=== PATIENT | female | born 1965 | race American Indian/Alaskan Native ===

== ENCOUNTER 2017-06-03 21:10 | Inpatient (IN) | payer MEDICARE ==
[2017-06-03] MEDS ORDERED: ZOFRAN IV ONE (21:52)
[2017-06-03] MEDS ORDERED: PEPCID IV ONE (21:52)
[2017-06-03 22:36] LABS: Basophils % (Auto) 0.7 % (0.0-1.8); Eosinophils % (Auto) 1.3 % (0.0-4.3); Hematocrit 36.7 % (30.3-42.9); Hemoglobin 11.7 gm/dl (10.1-14.3); Lymphocytes % (Auto) 26.7 % (13.4-35.0); Mean Corpuscular HGB Conc 32 % (30-34); Mean Corpuscular Hemoglobin 28 pg (28-32); Mean Corpuscular Volume 89 fl (79-97); Monocytes % (Auto) 4.6 % (0.0-7.3); Platelet Count 399 K/mm3 (140-440); Red Blood Count 4.14 M/mm3 (3.65-5.03); Red Cell Distribution Width 17.4 % (13.2-15.2)
[2017-06-03 22:37] LABS: Eosinophils # (Auto) 0.1 K/mm3 (0.0-0.4); Lymphocytes # (Auto) 1.8 K/mm3 (1.2-5.4); Monocytes # (Auto) 0.3 K/mm3 (0.0-0.8)
[2017-06-03 23:00] LABS: Calcium 9.6 mg/dL (8.4-10.2)
[2017-06-03] MEDS ORDERED: D50W (25GM) Syringe IV ONE (23:04)
--- NOTE | 2017-06-04 00:30 | Emergency Department Report ---
- General Chief complaint: Hypoglycemia Stated complaint: HYPOGLYCEMIA Time Seen by Provider: 06/03/17 21:45 Source: patient Mode of arrival: Stretcher Limitations: No Limitations - History of Present Illness Initial comments: Patient is a 52-year-old female with a past medical history of insulin-dependent diabetes who is presenting with hypoglycemia. The patient's daughter called 911 because she was altered. Patient had a tooth extraction 2 days ago as been taking Vicodin and antibiotics but not eating and drinking well because of pain in her mouth. Patient has still been taking her insulin as scheduled. Patient was noted to be altered. EMS arrived her blood sugar was 40. Patient was given D50 one amp before arrival. Patient is denying any nausea vomiting chest pain shortness of breath fevers chills at this time. Severity scale (0 -10): 0 - Related Data Home Medications Medication Instructions Recorded Confirmed Last Taken Docusate Sodium [Colace CAP] 100 mg PO BID 03/04/17 03/04/17 Unknown Insulin Regular, Human [Novolin R] 3 units IJ TID 03/04/17 03/04/17 Unknown Sevelamer Carbonate [Renvela] 800 mg PO TIDWM 03/04/17 03/04/17 Unknown Vit B Comp No.3/Folic/C/Biotin 1 each PO ONCE 03/04/17 03/04/17 Unknown [Anayeli-Bang Rx Tablet] Previous Rx's Medication Instructions Recorded Last Taken Type Divalproex Sodium 125 mg PO DAILY #30 tablet. 03/07/17 Unknown Rx Metoprolol [Lopressor TAB] 50 mg PO BID #60 tablet 03/07/17 Unknown Rx NovoLOG Mix 70/30 VIAL 25 unit SUB-Q TIDAC 30 Days 03/07/17 Unknown Rx Sodium Bicarbonate 1,300 mg PO TID #30 tablet 03/07/17 Unknown Rx amLODIPine 10 mg PO DAILY #30 03/07/17 Unknown Rx Allergies Allergy/AdvReac Type Severity Reaction Status Date / Time Penicillins Allergy Hives Verified 03/03/17 16:41 ED Review of Systems ROS: Stated complaint: HYPOGLYCEMIA Other details as noted in HPI Comment: All other systems reviewed and negative ED Past Medical Hx - Past Medical History Previous Medical History?: Yes Hx Hypertension: Yes Hx Congestive Heart Failure: No Hx Diabetes: Yes Hx Renal Disease: Yes (no longer on dialysis) Hx Psychiatric Treatment: Yes (bi-polar, schizophrenia) Hx Asthma: No - Surgical History Past Surgical History?: Yes Additional Surgical History: LUE fistula. - Social History Smoking Status: Never Smoker Substance Use Type: None - Medications Home Medications: Home Medications Medication Instructions Recorded Confirmed Last Taken Type Docusate Sodium [Colace CAP] 100 mg PO BID 03/04/17 03/04/17 Unknown History Insulin Regular, Human [Novolin R] 3 units IJ TID 03/04/17 03/04/17 Unknown History Sevelamer Carbonate [Renvela] 800 mg PO TIDWM 03/04/17 03/04/17 Unknown History Vit B Comp No.3/Folic/C/Biotin 1 each PO ONCE 03/04/17 03/04/17 Unknown History [Anayeli-Bang Rx Tablet] Divalproex Sodium 125 mg PO DAILY #30 tablet. 03/07/17 Unknown Rx Metoprolol [Lopressor TAB] 50 mg PO BID #60 tablet 03/07/17 Unknown Rx NovoLOG Mix 70/30 VIAL 25 unit SUB-Q TIDAC 30 Days 03/07/17 Unknown Rx Sodium Bicarbonate 1,300 mg PO TID #30 tablet 03/07/17 Unknown Rx amLODIPine 10 mg PO DAILY #30 03/07/17 Unknown Rx ED Physical Exam - General Limitations: No Limitations General appearance: alert, in no apparent distress - Head Head exam: Present: atraumatic, normocephalic - Eye Eye exam: Present: normal appearance, PERRL, other (pupils are pinpoint) - ENT ENT exam: Present: mucous membranes moist - Neck Neck exam: Present: normal inspection - Respiratory Respiratory exam: Present: normal lung sounds bilaterally. Absent: respiratory distress - Cardiovascular Cardiovascular Exam: Present: regular rate, normal rhythm. Absent: systolic murmur, diastolic murmur, rubs, gallop - GI/Abdominal GI/Abdominal exam: Present: soft, normal bowel sounds - Extremities Exam Extremities exam: Present: normal inspection - Back Exam Back exam: Present: normal inspection - Neurological Exam Neurological exam: Present: alert, oriented X3 - Psychiatric Psychiatric exam: Present: normal affect, normal mood - Skin Skin exam: Present: warm, dry, intact, normal color. Absent: rash ED Course Vital Signs 01/19/18 01/19/18 01/19/18 22:10 22:30 23:05 Temperature 89.7 F L Pulse Rate 83 Respiratory 16 16 Rate Blood Pressure 162/95 Blood Pressure 162/95 [Left] O2 Sat by Pulse 99 100 Oximetry - Reevaluation(s) Reevaluation #1: 06/04/17 00:29 Patient still was somewhat lethargic blood sugar serum was in the 50s. Patient was given an additional amp of D50 and has eaten. ED Medical Decision Making - Lab Data Result diagrams: 06/03/17 22:05 06/03/17 22:05 - Medical Decision Making Patient is a 52-year-old female with past medical history diabetes and end- stage renal disease patient is on dialysis. Patient was noted to be hypoglycemic was given several doses of D50 and food but is still borderline with her blood sugar. Patient was started on D5 drip and will be admitted to the hospital Critical care attestation.: If time is entered above; I have spent that time in minutes in the direct care of this critically ill patient, excluding procedure time. ED Disposition Clinical Impression: Hypoglycemia, Chronic renal disease Insulin reaction Qualifiers: Encounter type: initial encounter Qualified Code(s): T38.3X5A - Adverse effect of insulin and oral hypoglycemic [antidiabetic] drugs, initial encounter Disposition: 09 OP ADMIT IP TO THIS HOSP Is pt being admited?: Yes Does the pt Need Aspirin: No Condition: Stable
[2017-06-04] MEDS ORDERED: D5NS 1,000 ML IV SCH (01:00)
[2017-06-04] MEDS ORDERED: ZOFRAN IV PRN (03:45)
[2017-06-04] MEDS: HEPARIN SUB-Q SCH ×3 (06:53→23:25)
--- NOTE | 2017-06-04 09:18 | Event Note ---
Date: 06/04/17 See H/p in reports Persistent Hypoglycemia ESRD IDDM
--- NOTE | 2017-06-04 09:54 | History and Physical Report ---
CHIEF COMPLAINT: Persistent low sugar. HISTORY OF PRESENT ILLNESS: A 52-year-old -[place] female admitted presents with persistent hypoglycemia. The patient has not been eating well because of her teeth being removed and recent dental care, but the patient is still taking the same amount of insulin. Persistently hypoglycemic in the Emergency Room. Feels weak and sweaty and palpitations. Otherwise, no other symptoms. PAST MEDICAL HISTORY: Significant for insulin-dependent diabetes; end-stage renal disease, not on dialysis. Bipolar, schizophrenia, hypertension. No congestive heart failure. PAST SURGICAL HISTORY: Left upper extremity fistula, . SOCIAL HISTORY: Does not smoke. No alcohol, no recreational drugs. FAMILY HISTORY: Significant for hypertension. CURRENT MEDICATIONS: Insulin 70/30, 25 units twice a day. Sodium bicarbonate 1300 mg t.i.d. REVIEW OF SYSTEMS: Significant for persistent hypoglycemia, feeling weak and sweaty and palpitations. Otherwise, review of systems is essentially negative. No nausea, no vomiting, no fever, no chills. PHYSICAL EXAMINATION: GENERAL: Middle-aged female, cooperative during examination. VITAL SIGNS: Blood pressure is 153/78, temperature is 98.8, pulse is 100, respirations 16. HEENT: Unremarkable. Pupils equal and reactive. NECK: Supple, no lymphadenopathy, no thyromegaly. LUNGS: Clear to auscultation and percussion. Good air entry. CARDIOVASCULAR: S1, S2 heard. No gallop, no murmur, no rub. Apical impulse in left fifth intercostal space and midclavicular line. ABDOMEN: Soft and benign. No hepatosplenomegaly. No guarding, no rigidity. EXTREMITIES: Good pedal pulses. No pedal edema. CENTRAL NERVOUS SYSTEM: Alert and oriented x 4, nonfocal exam. LABORATORY DATA: Significant for normal hemoglobin and hematocrit 11.7 and 36.7, normal white count. BUN and creatinine 60 and 4.7, glucose is 54. Sodium is 143. CT of the head was negative. No imaging studies. ASSESSMENT AND PLAN: 1. Persistent hypoglycemia. The patient started onD5W for the time being. Also, hold insulin for the time being and resume at a lower dos. 2. Hypertension. Continue metoprolol. 3. Chronic kidney disease. Continue sodium bicarbonate. The patient not on dialysis. 4. Deep venous thrombosis prophylaxis, Lovenox 40 mg subcutaneous daily. [facility]# [id number] LEO/JASON
--- NOTE | 2017-06-04 10:46 | Event Note ---
Date: 06/04/17 Patient with chronic kidney disease, hypoglycemia. Will discontinue D5NS. Start 5%Dextrose at 42ml/min
[2017-06-04] MEDS ORDERED: D5W 1,000 ML IV SCH (11:00)
[2017-06-04] MEDS ORDERED: LASIX IV ONE (11:00)
[2017-06-04 13:08] LABS: Calcium 9.3 mg/dL (8.4-10.2)
[2017-06-04] MEDS ORDERED: KIONEX PO ONE (14:17)
[2017-06-05] MEDS: HEPARIN SUB-Q SCH ×2 (06:15→13:01)
--- NOTE | 2017-06-05 12:07 | Discharge Summary ---
Providers - Providers Date of Admission: 06/04/17 00:33 Date of discharge: 06/05/17 Attending physician: MAURICE SCOTT 06/04/17 20:15 Consult to Physician [CONS] Routine Consulting Provider: RADHA GONZALEZ Reason For Exam: cKD Place consult to:: DR. GONZALEZ Notified:: A.SGabi Phone number called:: [phone] Was contact made?: Yes If yes, spoke with:: KENNEDI Time called:: 10:43 Comment:: DOMINIC NOTIFIED Primary care physician: MAURICE EDWARD Hospitalization Condition: Fair Disposition: DC-01 TO HOME OR SELFCARE - Discharge Diagnoses (1) Hypoglycemia Status: Acute Core Measure Documentation - Palliative Care Palliative Care/ Comfort Measures: Not Applicable Exam - Constitutional Vitals: Temp Pulse Resp BP Pulse Ox 99.0 F 108 H 20 167/95 93 06/05/17 07:22 06/05/17 07:22 06/05/17 07:22 06/05/17 07:22 06/05/17 07:22 Plan Activity: no restrictions Diet: low fat, low cholesterol, low salt, diabetic, renal Additional Instructions: 1.Follow up with PCP in 3- 5 days. 2.Follow up with Dr. Ramirez, Bakery Machine Mechanic Supervisor in 1-2 days to follow Cr 4.8. 3.Hold all Insulin for few days until blood glucose goes above 200 then resume. Follow up with: MAURICE EDWARD MD [Primary Care Provider] - 7 Days
[2017-06-05] MEDS ORDERED: LOPRESSOR PO SCH (12:10)
[2017-06-05 12:23] VITALS: BP 151/78
== END 2017-06-05 14:30 | disposition home or self-care (01) | DRG 638 ==
LOC: ED 21:10 → 3A 06-04 00:33
PROVIDERS: ADMIT Internal Medicine; ATTEND Internal Medicine
DX: E11.649 Type 2 diabetes mellitus with hypoglycemia without coma (principal); I12.0 Hypertensive chronic kidney disease with stage 5 chronic kidney disease or end stage renal disease; F31.9 Bipolar disorder, unspecified; F20.9 Schizophrenia, unspecified; N18.6 End stage renal disease; E11.22 Type 2 diabetes mellitus with diabetic chronic kidney disease; T38.3X5A Adverse effect of insulin and oral hypoglycemic [antidiabetic] drugs, initial encounter; Y92.89 Other specified places as the place of occurrence of the external cause; Z82.49 Family history of ischemic heart disease and other diseases of the circulatory system; Z79.4 Long term (current) use of insulin; Z79.899 Other long term (current) drug therapy; Z88.0 Allergy status to penicillin
CPT/HCPCS: 36415; 80048; 82962; 83036; 84132; 85025; 96374; 96375; J1644; J1940; J2405; J7042; J7070

== ENCOUNTER 2017-07-18 11:26 | Emergency (ER) | payer MEDICARE ==
[2017-07-18] MEDS ORDERED: ULTRAM PO ONE (15:05)
[2017-07-18] MEDS ORDERED: MOTRIN PO ONE (15:05)
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
[2017-07-18 17:34] VITALS: BP 182/99
== END 2017-07-18 17:36 | disposition home or self-care (01) ==
LOC: ED 11:26
DX: S39.012A Strain of muscle, fascia and tendon of lower back, initial encounter (principal); S13.4XXA Sprain of ligaments of cervical spine, initial encounter; E11.22 Type 2 diabetes mellitus with diabetic chronic kidney disease; I12.9 Hypertensive chronic kidney disease with stage 1 through stage 4 chronic kidney disease, or unspecified chronic kidney disease; N18.9 Chronic kidney disease, unspecified; F31.9 Bipolar disorder, unspecified; F20.9 Schizophrenia, unspecified; Z88.0 Allergy status to penicillin; V87.7XXA Person injured in collision between other specified motor vehicles (traffic), initial encounter; Y93.89 Activity, other specified; Y99.8 Other external cause status; Y92.410 Unspecified street and highway as the place of occurrence of the external cause
CPT/HCPCS: 72040; 72070; 72100; 99283

== ENCOUNTER 2018-08-13 08:27 | Emergency (ER) | payer MEDICARE ==
[2018-08-13 08:36] VITALS: BP 178/97
[2018-08-13 09:26] LABS: Basophils # (Auto) 0.1 K/mm3 (0.0-0.1); Basophils % (Auto) 0.8 % (0.0-1.8); Eosinophils # (Auto) 0.5 K/mm3 (0.0-0.4); Eosinophils % (Auto) 7.5 % (0.0-4.3); Hematocrit 29.1 % (30.3-42.9); Hemoglobin 9.7 gm/dl (10.1-14.3); Lymphocytes # (Auto) 2.4 K/mm3 (1.2-5.4); Lymphocytes % (Auto) 35.8 % (13.4-35.0); Mean Corpuscular HGB Conc 33 % (30-34); Mean Corpuscular Volume 86 fl (79-97); Monocytes # (Auto) 0.6 K/mm3 (0.0-0.8); Monocytes % (Auto) 8.8 % (0.0-7.3); Platelet Count 435 K/mm3 (140-440); Red Blood Count 3.37 M/mm3 (3.65-5.03); Red Cell Distribution Width 14.4 % (13.2-15.2)
[2018-08-13 09:31] LABS: Bilirubin,Urine NEG (Negative); Blood,Urine NEG (Negative); Color,Urine Straw (Yellow); Urobilinogen,Urine < 2.0 mg/dL (<2.0)
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
[2018-08-13 09:39] LABS: Protein,Urine >500 mg/dL (Negative)
[2018-08-13 09:41] LABS: Alanine Aminotransferase 11 units/L (7-56); Albumin 3.9 g/dL (3.9-5); BUN/Creatinine Ratio 7; Blood Urea Nitrogen 36 mg/dL (7-17); Hemolysis Index 4
[2018-08-13 09:44] LABS: Amphetamine Screen,Urine PRESUMPTIVE NEGATIVE; Benzodiazepines Screen,Urine PRESUMPTIVE NEGATIVE; Cannabinoid Screen,Urine PRESUMPTIVE NEGATIVE; Cocaine Screen,Urine PRESUMPTIVE NEGATIVE; Methadone Screen,Urine PRESUMPTIVE NEGATIVE; Opiate Screen,Urine PRESUMPTIVE NEGATIVE
[2018-08-13 09:53] LABS: Bilirubin,Direct < 0.2 mg/dL (0-0.2)
[2018-08-13] MEDS ORDERED: K-DUR PO ONE (10:01)
== END 2018-08-13 10:51 | disposition home or self-care (01) ==
LOC: ED 08:27
DX: E87.6 Hypokalemia (principal); I10 Essential (primary) hypertension; E11.9 Type 2 diabetes mellitus without complications; F31.9 Bipolar disorder, unspecified; F20.9 Schizophrenia, unspecified; Z79.899 Other long term (current) drug therapy; Z88.1 Allergy status to other antibiotic agents
CPT/HCPCS: 36415; 80048; 80076; 80307; 81001; 83690; 85025; 99284; G0480; 80320